=== PATIENT | female | born 1970 | race Caucasian/White ===

== ENCOUNTER 2017-08-24 16:29 | Emergency (ER) | payer OTHER, BC ==
[~2017-08-24] VITALS: Ht 185.4 cm; Wt 158.8 kg
[~2017-08-24 16:29] MED LIST: ASPI325 PO; ASPI81CH PO; ATOR80 PO; BASAGLAR K100 UNIT/1 SC; CEPH500 PO; CLOP75 PO; HYDACE5 PO; IBUP600 PO; IBUP800 PO; Isosorbide Mono30 MG PO; LEVSOD75 PO; LISHYD1012 PO; METF500 PO; METF500C PO; METO25ER PO; RANI150 PO; RXHYDACE PO; Synthroid175 MCG PO; Vibramycin100 MG PO
[2017-08-24] MEDS ORDERED: GLIP5ER PO (16:38)
[2017-08-24] MEDS ORDERED: HYDR1TAB94 PO (18:00)
== END 2017-08-24 18:06 | disposition home or self-care (01) ==
LOC: ER 16:29
DX: S09.90XA Unspecified injury of head, initial encounter (principal); S16.1XXA Strain of muscle, fascia and tendon at neck level, initial encounter; M25.512 Pain in left shoulder; D68.32 Hemorrhagic disorder due to extrinsic circulating anticoagulants; T50.905A Adverse effect of unspecified drugs, medicaments and biological substances, initial encounter; Z88.0 Allergy status to penicillin; Z79.899 Other long term (current) drug therapy; Z79.4 Long term (current) use of insulin; Z79.82 Long term (current) use of aspirin; E11.9 Type 2 diabetes mellitus without complications; Z87.891 Personal history of nicotine dependence; V63.9XXA Unspecified occupant of heavy transport vehicle injured in collision with car, pick-up truck or van in traffic accident, initial encounter
CPT/HCPCS: 70450; 99284

== ENCOUNTER 2017-09-04 17:06 | Observation (INO) | payer BC ==
[~2017-09-04] VITALS: Ht 185.4 cm; Wt 160.8 kg
[~2017-09-04 17:06] MED LIST changes: +GLIP5ER PO; +HYDR1TAB94 PO; -LISHYD1012 PO; +ZESTORETIC 20-1 EACH PO
[2017-09-04] MEDS ORDERED: INSULANPEN SC (17:59)
[2017-09-04] MEDS ORDERED: [UNRECOGNIZED DRUG - OTHER] (18:00)
[2017-09-04 18:15] LABS: BASOPHILS ABSOLUTE AUTO 0.05 K/mm3 (0.00-0.23); BASOPHILS PERCENT AUTO 1 % (0-2); EOSINOPHILS ABSOLUTE AUTO 0.09 K/mm3 (0.00-0.68); EOSINOPHILS PERCENT AUTO 1 % (0-6); Hematocrit 39.3 % (33.0-51.0); Hemoglobin 12.8 g/dL (11.5-16.0); IMMATURE GRAN ABSOLUTE AUTO 0.02 K/mm3 (0.00-0.10); IMMATURE GRAN PERCENT AUTO 0 % (0-1); LYMPHOCYTES ABSOLUTE AUTO 2.69 K/mm3 (0.84-5.20); LYMPHOCYTES PERCENT AUTO 29 % (21-46); MONOCYTES ABSOLUTE AUTO 0.71 K/mm3 (0.16-1.47); MONOCYTES PERCENT AUTO 8 % (4-13); Mean Corpuscular HGB 28.3 pg (26.0-34.0); Mean Corpuscular HGB Conc 32.6 g/dL (31.5-36.5); Mean Corpuscular Volume 87 fL (80-100); Mean Platelet Volume 10.3 fL (9.1-12.4); NEUTROPHILS ABSOLUTE AUTO 5.88 K/mm3 (1.96-9.15); NEUTROPHILS PERCENT AUTO 62 % (41-73); Platelet Count 296 K/mm3 (150-400); RDW Standard Deviation 44.5 fL (35.1-46.3); Red Blood Cell Count 4.52 M/mm3 (3.80-5.20); White Blood Cell Count 9.44 K/mm3 (4.00-11.30)
[2017-09-04 18:28] LABS: International Normalized Ratio 0.95; Prothrombin Time Results 9.9 Sec (9.7-11.5)
[2017-09-04 18:29] LABS: Alanine Aminotransfer (ALT/SGP 25 U/L (12-78); Albumin, Blood 3.4 g/dL (3.4-5.0); Albumin/Globulin Ratio 0.8 (0.8-1.8); Alk Phos 94 U/L (50-136); Anion Gap 11 mmol/L (6-16); Aspartate Aminotrans (AST/SGOT 16 U/L (12-37); Bilirubin, Total 0.3 mg/dL (0.1-1.0); Blood Urea Nitrogen 19 mg/dL (8-24); CO2, Blood 23 mmol/L (21-32); Calcium, Blood 8.9 mg/dL (8.5-10.1); Chloride, Blood 102 mmol/L (98-108); Globulin, Blood 4.3 g/dL (2.2-4.0); Glomerular Filtration Rate >60 (60-); Glucose, Blood 259 mg/dL (70-99); Potassium, Blood 3.9 mmol/L (3.5-5.5); Sodium, Blood 136 mmol/L (136-145); Total Protein, Blood 7.7 g/dL (6.4-8.2); Troponin I <0.015 ng/mL (0.000-0.040)
[2017-09-05] MEDS ORDERED: STELARA45 MG/0.1 SC (11:29)
[2017-09-05] MEDS ORDERED: PANT40 PO (11:29)
== END 2017-09-05 13:13 | disposition home or self-care (01) ==
LOC: ER 17:06 → MEDS 17:07 → ER 21:13 → MEDS 21:22 → ENPENDDIS 09-05 09:30 → MEDS 09-05 13:13
PROVIDERS: Emergency Medicine
DX: R07.89 Other chest pain (principal); R12 Heartburn; I25.10 Atherosclerotic heart disease of native coronary artery without angina pectoris; I10 Essential (primary) hypertension; E11.9 Type 2 diabetes mellitus without complications; K21.9 Gastro-esophageal reflux disease without esophagitis; E66.01 Morbid (severe) obesity due to excess calories; I25.2 Old myocardial infarction; E03.9 Hypothyroidism, unspecified; Z88.0 Allergy status to penicillin; Z79.82 Long term (current) use of aspirin; Z79.899 Other long term (current) drug therapy; Z79.02 Long term (current) use of antithrombotics/antiplatelets; Z82.49 Family history of ischemic heart disease and other diseases of the circulatory system; Z95.5 Presence of coronary angioplasty implant and graft; Z87.891 Personal history of nicotine dependence; Z68.42 Body mass index [BMI] 45.0-49.9, adult
CPT/HCPCS: 36415; 71046; 80053; 82947; 83880; 84484; 85025; 85610; 85730; 93005; 93010; 99285; G0378; J1815

== ENCOUNTER 2019-03-06 16:29 | Emergency (ER) | payer BC ==
[~2019-03-06] VITALS: Ht 185.4 cm; Wt 158.8 kg
[~2019-03-06 16:29] MED LIST changes: +BASAGLAR K100 UNIT/1; +INSULANPEN SC; +PANT40 PO; +STELARA45 MG/0.1 SC; +STELARA90 MG/1 ML; +[UNRECOGNIZED DRUG - OTHER]
[2019-03-06 16:59] LABS: BASOPHILS ABSOLUTE AUTO 0.04 K/mm3 (0.00-0.23); BASOPHILS PERCENT AUTO 1 % (0-2); EOSINOPHILS ABSOLUTE AUTO 0.09 K/mm3 (0.00-0.68); EOSINOPHILS PERCENT AUTO 1 % (0-6); Hematocrit 39.4 % (33.0-51.0); Hemoglobin 12.9 g/dL (11.5-16.0); IMMATURE GRAN ABSOLUTE AUTO 0.03 K/mm3 (0.00-0.10); IMMATURE GRAN PERCENT AUTO 0 % (0-1); LYMPHOCYTES ABSOLUTE AUTO 2.39 K/mm3 (0.84-5.20); LYMPHOCYTES PERCENT AUTO 32 % (21-46); MONOCYTES ABSOLUTE AUTO 0.59 K/mm3 (0.16-1.47); MONOCYTES PERCENT AUTO 8 % (4-13); Mean Corpuscular HGB 28.8 pg (26.0-34.0); Mean Corpuscular HGB Conc 32.7 g/dL (31.5-36.5); Mean Corpuscular Volume 88 fL (80-100); Mean Platelet Volume 10.2 fL (9.1-12.4); NEUTROPHILS ABSOLUTE AUTO 4.38 K/mm3 (1.96-9.15); NEUTROPHILS PERCENT AUTO 58 % (41-73); Platelet Count 281 K/mm3 (150-400); RDW Coefficient Variation 13.6 % (11.7-14.2); RDW Standard Deviation 43.6 fL (35.1-46.3); Red Blood Cell Count 4.48 M/mm3 (3.80-5.20); White Blood Cell Count 7.52 K/mm3 (4.00-11.30)
[2019-03-06] MEDS ORDERED: LISINOPRIL/HCTZ (17:10)
[2019-03-06] MEDS ORDERED: METF500C PO (17:11)
[2019-03-06] MEDS ORDERED: FLUC200 PO (17:13)
[2019-03-06] MEDS ORDERED: GLIP2.5ER PO (17:13)
[2019-03-06] MEDS ORDERED: BASAGLAR K100 UNIT/2 SC (17:13)
[2019-03-06 17:21] LABS: Alanine Aminotransfer (ALT/SGP 28 U/L (12-78); Albumin, Blood 3.3 g/dL (3.4-5.0); Albumin/Globulin Ratio 0.8 (0.8-1.8); Alk Phos 90 U/L (50-136); Anion Gap 6 mmol/L (6-16); Aspartate Aminotrans (AST/SGOT 14 U/L (12-37); Bilirubin, Total 0.5 mg/dL (0.1-1.0); Blood Urea Nitrogen 14 mg/dL (8-24); Bun/Creatinine Ratio 16.4 (12.0-20.0); CO2, Blood 26 mmol/L (21-32); Chloride, Blood 102 mmol/L (98-108); Creatinine, Blood 0.86 mg/dL (0.40-1.00); Glomerular Filtration Rate >60 (60-); Glucose, Blood 289 mg/dL (70-99); Potassium, Blood 3.9 mmol/L (3.5-5.5); Sodium, Blood 134 mmol/L (136-145); Total Protein, Blood 7.3 g/dL (6.4-8.2); Troponin I <0.015 ng/mL (0.000-0.040)
== END 2019-03-06 18:17 | disposition home or self-care (01) ==
LOC: ER 16:29
PROVIDERS: Physician Assistant
DX: R07.89 Other chest pain (principal); I25.10 Atherosclerotic heart disease of native coronary artery without angina pectoris; I25.2 Old myocardial infarction; I10 Essential (primary) hypertension; E11.9 Type 2 diabetes mellitus without complications; E03.9 Hypothyroidism, unspecified; K21.9 Gastro-esophageal reflux disease without esophagitis; Z95.5 Presence of coronary angioplasty implant and graft; Z88.0 Allergy status to penicillin; Z79.899 Other long term (current) drug therapy; Z79.82 Long term (current) use of aspirin; Z79.4 Long term (current) use of insulin; Z87.891 Personal history of nicotine dependence
CPT/HCPCS: 36415; 71046; 80053; 84484; 85025; 93005; 93010; 99285-25

== ENCOUNTER 2019-04-19 16:17 | Emergency (ER) | payer BC ==
[~2019-04-19] VITALS: Ht 185.4 cm; Wt 158.8 kg
[~2019-04-19 16:17] MED LIST changes: +BASAGLAR K100 UNIT/2 SC; +FLUC200 PO; +GLIP2.5ER PO; +LISINOPRIL/HCTZ
[2019-04-19] MEDS ORDERED: Prinivil10 MG PO (18:52)
[2019-04-19] MEDS ORDERED: Pravachol40 MG PO (18:52)
== END 2019-04-19 19:06 | disposition home or self-care (01) ==
LOC: ER 16:17
DX: I82.812 Embolism and thrombosis of superficial veins of left lower extremity (principal); E11.9 Type 2 diabetes mellitus without complications; I25.2 Old myocardial infarction; Z88.0 Allergy status to penicillin; Z79.899 Other long term (current) drug therapy; Z79.82 Long term (current) use of aspirin; Z79.4 Long term (current) use of insulin; Z87.891 Personal history of nicotine dependence
CPT/HCPCS: 93971; 99283-25

== ENCOUNTER 2020-09-05 10:34 | Day surgery (SDC) | payer BC ==
[~2020-09-05] VITALS: Ht 185.4 cm; Wt 150.8 kg
[~2020-09-05 10:34] MED LIST changes: +BASAGLAR K100 UNIT/8; +GABA300; +HYDCHL25 PO; +JARDIANCE10 MG PO; +Pravachol40 MG PO; +Prinivil10 MG PO
[2020-09-05] MEDS ORDERED: TRULICITY1.5 MG/0.1 (11:14)
[2020-09-05] MEDS ORDERED: MELO7.5 (11:15)
== END 2020-09-05 12:36 | disposition home or self-care (01) ==
LOC: ORSCSDS 10:34
PROVIDERS: Internal Medicine Gastroenterology
PROC: 0DJD8ZZ Inspection of Lower Intestinal Tract, Via Natural or Artificial Opening Endoscopic (ICD-10-PCS; principal; 2020-09-05 12:00)
DX: Z12.11 Encounter for screening for malignant neoplasm of colon (principal); K57.30 Diverticulosis of large intestine without perforation or abscess without bleeding; K64.8 Other hemorrhoids; E11.9 Type 2 diabetes mellitus without complications; I10 Essential (primary) hypertension; E78.5 Hyperlipidemia, unspecified; E03.9 Hypothyroidism, unspecified; Z87.891 Personal history of nicotine dependence; I25.2 Old myocardial infarction; E66.01 Morbid (severe) obesity due to excess calories; Z68.42 Body mass index [BMI] 45.0-49.9, adult; Z79.82 Long term (current) use of aspirin; Z79.4 Long term (current) use of insulin; Z79.899 Other long term (current) drug therapy
CPT/HCPCS: 82947; J2704; J7120

== ENCOUNTER → 2020-10-29 | Outpatient (CLI) | payer BC ==
[~2020-10-29] MED LIST changes: +MELO7.5; +TRULICITY1.5 MG/0.1
[2020-11-01 11:12] LABS: HPV 16 Negative (Negative); HPV 18 Negative (Negative); HPV OTHER HR TYPES Negative (Negative)
== END ==
LOC: LAB 15:50 → LAB SHORT 15:50
PROVIDERS: Registered Nurse Community Health
DX: Z12.4 Encounter for screening for malignant neoplasm of cervix (principal)
CPT/HCPCS: 87624; G0123

== ENCOUNTER 2023-01-16 07:27 | Emergency (ER) | payer OTHER, BC ==
[~2023-01-16] VITALS: Ht 185.4 cm; Wt 151.5 kg
[2023-01-16 07:38] VITALS: BP 149/87
[2023-01-16] MEDS ORDERED: CYCL10 PO (07:58)
== END 2023-01-16 08:08 | disposition home or self-care (01) ==
LOC: ER 07:27
DX: S13.4XXA Sprain of ligaments of cervical spine, initial encounter (principal); V49.40XA Driver injured in collision with unspecified motor vehicles in traffic accident, initial encounter; Z88.0 Allergy status to penicillin; Z79.82 Long term (current) use of aspirin; Z79.4 Long term (current) use of insulin; Z79.890 Hormone replacement therapy; Z79.899 Other long term (current) drug therapy; E11.9 Type 2 diabetes mellitus without complications; I25.2 Old myocardial infarction; Z87.891 Personal history of nicotine dependence
CPT/HCPCS: 72040; 99283-25; A9270

== ENCOUNTER → 2023-05-15 | Outpatient (CLI) | payer BC, OTHER ==
[~2023-05-15] MED LIST changes: +CYCL10 PO
[2023-05-22 00:30] LABS: HPV GENOTYPE 16 Not Detected; HPV GENOTYPE 18 Not Detected; HPV HIGH RISK Not Detected; HPV SOURCE Cervical
== END ==
LOC: LAB SHORT 11:21 → LAB 11:21
PROVIDERS: General Practice
DX: Z12.4 Encounter for screening for malignant neoplasm of cervix (principal)
CPT/HCPCS: 87624; G0123

== ENCOUNTER 2023-10-04 13:02 | Emergency (ER) | payer BC, OTHER ==
[~2023-10-04] VITALS: Ht 185.4 cm; Wt 148.3 kg
[2023-10-04 13:36] LABS: BASOPHILS ABSOLUTE AUTO 0.06 K/mm3 (0.00-0.23); BASOPHILS PERCENT AUTO 1 % (0-2); EOSINOPHILS PERCENT AUTO 1 % (0-6); Hemoglobin 13.5 g/dL (11.5-16.0); IMMATURE GRAN ABSOLUTE AUTO 0.01 K/mm3 (0.00-0.10); IMMATURE GRAN PERCENT AUTO 0 % (0-1); LYMPHOCYTES ABSOLUTE AUTO 2.19 K/mm3 (0.84-5.20); LYMPHOCYTES PERCENT AUTO 28 % (21-46); MONOCYTES ABSOLUTE AUTO 0.53 K/mm3 (0.16-1.47); MONOCYTES PERCENT AUTO 7 % (4-13); Mean Corpuscular HGB 27.7 pg (26.0-34.0); Mean Corpuscular HGB Conc 32.9 g/dL (31.5-36.5); Mean Corpuscular Volume 84 fL (80-100); Mean Platelet Volume 9.3 fL (9.1-12.4); NEUTROPHILS ABSOLUTE AUTO 5.03 K/mm3 (1.96-9.15); NEUTROPHILS PERCENT AUTO 63 % (41-73); Platelet Count 329 K/mm3 (150-400); RDW Coefficient Variation 15.2 % (11.7-14.2); RDW Standard Deviation 46.4 fL (35.1-46.3); Red Blood Cell Count 4.87 M/mm3 (3.80-5.20); White Blood Cell Count 7.92 K/mm3 (4.00-11.30)
[2023-10-04 14:02] LABS: Albumin, Blood 3.4 g/dL (3.4-5.0); Bilirubin, Total 0.4 mg/dL (0.1-1.0); Bun/Creatinine Ratio 26.4 (12.0-20.0); Creatinine, Blood 1.06 mg/dL (0.40-1.00); Globulin, Blood 3.5 g/dL (2.2-4.0); Potassium, Blood 4.3 mmol/L (3.5-5.5); Total Protein, Blood 6.9 g/dL (6.4-8.2)
[2023-10-04] MEDS ORDERED: Aspirin 325 MG Tab PO ONE (17:25)
[2023-10-04] MEDS ORDERED: Nitroglycerin 1 INCH/GM PKT TOP ONE (17:25)
[2023-10-04] MEDS ORDERED: EUTHYROX175 MC1 PO (17:29)
[2023-10-04] MEDS ORDERED: DECARA1250 MC1 PO (17:30)
[2023-10-04] MEDS ORDERED: SEMGLEE (Y100 UNIT/2 (17:30)
[2023-10-04 19:35] VITALS: BP 103/71
== END 2023-10-04 19:39 | disposition home or self-care (01) ==
LOC: ER 13:02
PROVIDERS: Student in an Organized Health Care Education/Training Program
DX: R07.89 Other chest pain (principal); E11.9 Type 2 diabetes mellitus without complications; E03.9 Hypothyroidism, unspecified; Z86.79 Personal history of other diseases of the circulatory system; Z87.891 Personal history of nicotine dependence; Z79.82 Long term (current) use of aspirin; Z79.84 Long term (current) use of oral hypoglycemic drugs; Z79.4 Long term (current) use of insulin; Z79.899 Other long term (current) drug therapy; Z88.0 Allergy status to penicillin
CPT/HCPCS: 71046; 80053; 84484; 85025; 93005; 93010; 99285-25; A9270

== ENCOUNTER → 2024-05-07 | Outpatient (CLI) | payer OTHER ==
[~2024-05-07] MED LIST changes: +DECARA1250 MC1 PO; +EUTHYROX175 MC1 PO; +SEMGLEE (Y100 UNIT/2
[2024-05-07 16:51] LABS: BASOPHILS ABSOLUTE AUTO 0.06 K/mm3 (0.00-0.23); BASOPHILS PERCENT AUTO 1 % (0-2); EOSINOPHILS ABSOLUTE AUTO 0.13 K/mm3 (0.00-0.68); EOSINOPHILS PERCENT AUTO 2 % (0-6); Hematocrit 38.4 % (33.0-51.0); Hemoglobin 12.9 g/dL (11.5-16.0); IMMATURE GRAN ABSOLUTE AUTO 0.04 K/mm3 (0.00-0.10); IMMATURE GRAN PERCENT AUTO 1 % (0-1); LYMPHOCYTES ABSOLUTE AUTO 2.54 K/mm3 (0.84-5.20); LYMPHOCYTES PERCENT AUTO 30 % (21-46); MONOCYTES ABSOLUTE AUTO 0.81 K/mm3 (0.16-1.47); MONOCYTES PERCENT AUTO 10 % (4-13); Mean Corpuscular HGB Conc 33.6 g/dL (31.5-36.5); Mean Corpuscular Volume 83 fL (80-100); Mean Platelet Volume 9.6 fL (9.1-12.4); NEUTROPHILS ABSOLUTE AUTO 4.84 K/mm3 (1.96-9.15); NEUTROPHILS PERCENT AUTO 58 % (41-73); Platelet Count 392 K/mm3 (150-400); RDW Coefficient Variation 15.1 % (11.7-14.2); RDW Standard Deviation 45.1 fL (35.1-46.3); Red Blood Cell Count 4.61 M/mm3 (3.80-5.20); White Blood Cell Count 8.42 K/mm3 (4.00-11.30)
[2024-05-07 16:58] LABS: Albumin, Blood 3.6 g/dL (3.4-5.0); Bilirubin, Total 0.4 mg/dL (0.1-1.0); Bun/Creatinine Ratio 18.3 (12.0-20.0); Creatinine, Blood 1.64 mg/dL (0.40-1.00); Globulin, Blood 3.6 g/dL (2.2-4.0); Potassium, Blood 5.4 mmol/L (3.5-5.5); Total Protein, Blood 7.2 g/dL (6.4-8.2)
== END | disposition home or self-care (01) ==
LOC: LAB SHORT 16:43 → LAB 16:43
PROVIDERS: Physician Assistant Medical
DX: R42 Dizziness and giddiness (principal)
CPT/HCPCS: 80053; 85025

== ENCOUNTER → 2024-05-08 | Outpatient (CLI) | payer OTHER ==
[2024-05-08 12:52] LABS: Bun/Creatinine Ratio 18.9 (12.0-20.0); Calcium, Blood 9.3 mg/dL (8.5-10.1); Creatinine, Blood 1.32 mg/dL (0.40-1.00); Potassium, Blood 4.1 mmol/L (3.5-5.5)
== END | disposition home or self-care (01) ==
LOC: LAB 12:44 → LAB SHORT 12:44
PROVIDERS: Physician Assistant Medical
DX: N17.9 Acute kidney failure, unspecified (principal)
CPT/HCPCS: 80048

== ENCOUNTER → 2024-05-09 | Outpatient (CLI) | payer BC, OTHER ==
[2024-05-09 12:06] LABS: Bun/Creatinine Ratio 17.5 (12.0-20.0); Calcium, Blood 9.2 mg/dL (8.5-10.1); Creatinine, Blood 1.26 mg/dL (0.40-1.00); Potassium, Blood 4.1 mmol/L (3.5-5.5)
== END | disposition home or self-care (01) ==
LOC: LAB 11:55 → LAB SHORT 11:55
PROVIDERS: Physician Assistant Medical
DX: N17.9 Acute kidney failure, unspecified (principal)
CPT/HCPCS: 80048

== ENCOUNTER 2024-07-10 12:22 | Observation (INO) | payer BC, OTHER ==
[~2024-07-10] VITALS: Ht 185.4 cm; Wt 116.9 kg
[~2024-07-10 12:22] MED LIST changes: -ELIQUIS5 M2 PO
[2024-07-10] MEDS ORDERED: Aspirin 325 MG Tab PO ONE ×2 (12:50→13:55)
[2024-07-10] MEDS ORDERED: Aspirin 81 MG Chew ONE (14:01)
[2024-07-10] MEDS ORDERED: PANT40 PO (14:13)
[2024-07-10 15:57] LABS: Anti-Xa UFH, PHA Monitoring <0.10 IU/mL; International Normalized Ratio 1.02; Prothrombin Time Results 10.9 Sec (9.7-11.5)
[2024-07-10] MEDS ORDERED: Dose Adjust by Pharmacy XX STA ×2 (16:00→23:49)
[2024-07-10] MEDS ORDERED: Heparin Sodium,Porcine/0.5 NS 500 ML IV SCH (16:05)
[2024-07-10] MEDS ORDERED: Heparin Sodium 5000 Units/ML 1ML MDV IV ONE (16:05)
[2024-07-10 17:16] VITALS: BP 120/73
--- NOTE | 2024-07-10 19:20 | NUR ---
ADMISSION/EOS: PATIENT IS ALERT AND ORIENTED X 4, ABLE TO MAKE NEEDS KNOWN, DENIES CHEST PAIN OR PAIN OF ANY KIND, AND MOM UPDATED OF SITUATION. RECENT BARIACTRIC SURGERY TO [facility] SHE REQUESTED PUREE DIET. PATIETN IS VERY STRICT ON INTAKE AND MAKES VERY GREAT FOOD CHOICES, DENIED ANY DIZZINESS WITH AMBULATION. VERY INDEPENDENT BUT STANDBY ASSIST DUE TO HEPARIN Gtt, TROPONIN TRENDED DOWN TO 201, 1 MORE PENDING. HIGH OF 232. CT PE NEGATIVE. DENIES YSURIA.. GREAT HISTORIAN. SPO2 >98% ON RA. AFIB WITH SLOW VENTRICULAR RATE WHICH IS NEW FOR HER. PLAN FOR ANGIO IN THE AM NPO AT 0000. NO ACUTE CONCERNS FROM THIS RN OR PATIENT.
[2024-07-10 20:21] VITALS: BP 110/70
[2024-07-10] MEDS ORDERED: Gabapentin 300 MG Cap PO SCH (21:00)
[2024-07-11] VITALS (10 sets, daily range): BP systolic 106–135; BP diastolic 73–96
[2024-07-11] MEDS ORDERED: Pantoprazole Sodium 40 MG Tab PO SCH (06:00)
[2024-07-11] MEDS ORDERED: Levothyroxine Sodium 0.175 MG TAB PO SCH (06:00)
[2024-07-11 06:19] LABS: Hematocrit 41.8 % (33.0-51.0); Hemoglobin 13.8 g/dL (11.5-16.0); Mean Platelet Volume 11.3 fL (9.1-12.4); Platelet Count 255 K/mm3 (150-400)
--- NOTE | 2024-07-11 06:28 | NUR ---
PT DID NOT HAVE ANY CHEST PAIN DURING SHIFT. PT DOES ENDORSE PALPITATIONS WHEN ACTIVE. NO DYSPNEA NOTED. PT AOX4, USES CALL LIGHT APPROPRIATELY. PT TOLERATING HEPARIN INFUSION WELL, NO S/S BLEEDING/BRUISING. PT WAS IN ATRIAL FIB W/SVR AT BEGINNING OF SHIFT AND CONVERTED TO SINUS RHYTHM/SINUS JEAN BEFORE MIDNIGHT. PT DOES CONTINUE TO BECOME TACHYCARDIC WITH ACTIVITY 110-120. PT STATES THAT SHE "IS FEELING BETTER", AT THE END OF THIS SHIFT.
[2024-07-11 06:45] LABS: Bun/Creatinine Ratio 23.4 (12.0-20.0); Creatinine, Blood 0.94 mg/dL (0.40-1.00); Potassium, Blood 3.5 mmol/L (3.5-5.5)
[2024-07-11] MEDS ORDERED: Dose Adjust by Pharmacy XX STA ×2 (06:48→14:20)
[2024-07-11] MEDS ORDERED: Metoprolol Succinate 50 MG TABCR PO SCH ×2 (09:00→21:00)
[2024-07-11] MEDS ORDERED: Atorvastatin 40 MG Tab PO SCH ×2 (09:00→21:00)
[2024-07-11] MEDS ORDERED: Aspirin 81 MG Chew PO SCH (09:00)
[2024-07-11] MEDS ORDERED: Empagliflozin 10 MG TAB PO SCH (09:00)
[2024-07-11] MEDS ORDERED: Gabapentin 300 MG Cap PO SCH (09:00)
--- NOTE | 2024-07-11 09:45 | NUR ---
AM NOTE: PATIENT ALERT AND ORIENTED X4. UP WITH SBA TO BATHROOM. DENIES PAIN/NUMBNESS/TINGLING. PERRLA. USING CALL LIGHT FOR NEEDS. AT BEDSIDE THIS AM. TELE SHOWING SB/SR WTH HR 50-60'S. SBP 120'S. DENIES CHEST PAIN/PRESSURE/PALPITATIONS. PLAN FOR ANGIOGRAM THIS AM. DR. REIS AT BEDSIDE THIS AM, THIS RN PRESENT. HOLDING PARAMETERS FOR PO METOPROLOL - HOLD FOR HR LESS THAN 50. ORDER UPDATED. SCD'S IN PLACE. HEPARIN INFUSING PER EMAR. NPO AT THIS TIME. ON ROOM AIR. LUNG SOUNDS CLEAR. DENIES SOB. EVEN AND UNLABORED RESPIRATIONS. BOWEL TONES PRESENT. RECENT GASTRIC BYPASS. DENIES ABDOMINAL PAIN/NAUSEA. UP WITH SBA TO BATHROOM. NPO AT THIS TIME PENDING ANGIO. ACHS/Q6 BLOOD SUGARS. SKIN C/D/I WITH SCABBING TO RIGHT MILLAN/KNEE. CALL LIGHT IN REACH. DENIES NEEDS AT THIS TIME.
[2024-07-11] MEDS ORDERED: FentaNYL Citrate 50 MCG/ML 2 ML Injection ONE (13:03)
[2024-07-11] MEDS ORDERED: NS 1,000 ML IV ONE ×2 (13:04→13:06)
[2024-07-11] MEDS ORDERED: Midazolam HCl 1MG / ML 2ML Vial ONE (13:04)
[2024-07-11] MEDS ORDERED: NS 250 ML IV ONE (13:06)
[2024-07-11] MEDS ORDERED: Heparin Sodium 1000 Units/ML 10ML MDV ONE (13:06)
[2024-07-11] MEDS ORDERED: Verapamil HCL 2.5 MG/ML 2ML Injection ONE (13:06)
[2024-07-11] MEDS ORDERED: Nitroglycerin 2 MG/20 ML BTL ONE (13:06)
--- NOTE | 2024-07-11 14:44 | NUR ---
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 POST PROCEDURE VITALS IN PROGRESS. RIGHT RADIAL SITE WITH TR BAND AND ARM BOARD IN PLACE. SOFT/NONTENDER. NO SIGNS OF BLEEDING AT THIS TIME. AND SON AT BEDSIDE. THIS RN REVIEWED RADIAL PRECAUTION EDUCATION. CALL LIGHT IN REACH. DR. PIERSON UPDATED THAT PATIENT IS BACK TO UNIT.
[2024-07-11] MEDS ORDERED: ELIQUIS5 M2 PO (14:51)
--- NOTE | 2024-07-11 15:48 | NUR ---
PLAN FOR DISCHARGE ONCE RADIAL SITE IS RECOVERED. MEDICATIONS FAXED TO [facility]. TO [facility]IST MEDICATIONS AT THIS TIME. RADIAL SITE REMAINS C/D/I. CALL LIGHT IN REACH.
[2024-07-11] MEDS ORDERED: Apixaban 5 MG Tab PO SCH (16:05)
--- NOTE | 2024-07-11 18:07 | NUR ---
DISCHARGE: NO ACUTE CHANGES. RIGHT RADIAL SITE RECOVERED AND TEGADERM IN PLACE WELL ARM BOARD. MEDS FAXED TO [facility]. PATIENT EDUCATED ON RADIAL PRECAUTIONS, NEW MEDICATIONS, BLOOD THINNER AND FALL RISK, SIGNS AND SYMPTOMS OF WHEN TO RETURN. AT BEDSIDE FOR EDUCATION. PATIENT TO FOLLO UP WITH PCP AND CARDIOLOGY. PATIENT LEFT UNIT WITH ALL PERSONAL BELONGINGS AND DISCHARGE PACKET.
[2024-07-16] MEDS ORDERED: Misc. Capsule PO SCH (09:00)
== END 2024-07-11 18:06 | disposition home or self-care (01) ==
LOC: ER 12:22 → PCU 15:18
PROVIDERS: Student in an Organized Health Care Education/Training Program; ADMIT Internal Medicine
DX: I21.4 Non-ST elevation (NSTEMI) myocardial infarction (principal); I25.10 Atherosclerotic heart disease of native coronary artery without angina pectoris; I25.2 Old myocardial infarction; I12.9 Hypertensive chronic kidney disease with stage 1 through stage 4 chronic kidney disease, or unspecified chronic kidney disease; E11.22 Type 2 diabetes mellitus with diabetic chronic kidney disease; N18.30 Chronic kidney disease, stage 3 unspecified; I48.91 Unspecified atrial fibrillation; E03.9 Hypothyroidism, unspecified; E78.5 Hyperlipidemia, unspecified; L40.9 Psoriasis, unspecified; Z87.891 Personal history of nicotine dependence; Z79.84 Long term (current) use of oral hypoglycemic drugs; Z79.82 Long term (current) use of aspirin; Z79.890 Hormone replacement therapy; Z79.4 Long term (current) use of insulin; Z79.899 Other long term (current) drug therapy; Z88.0 Allergy status to penicillin; Z95.5 Presence of coronary angioplasty implant and graft; Z98.84 Bariatric surgery status; Z90.49 Acquired absence of other specified parts of digestive tract
CPT/HCPCS: 36415; 71260; 76937; 80048; 82947; 84443; 84484; 85014; 85018; 85049; 85520; 85610; 85730; 93005; 93010; 93306; 93458; 96365; 96376; 99152; 99285-25; A9270; C1769; C1887; C1894; G0378; J1644; J2250; J3010; J7030; J7050; Q9967

== ENCOUNTER → 2024-07-10 | Outpatient (CLI) | payer BC, OTHER ==
[~2024-07-10] MED LIST changes: +ELIQUIS5 M2 PO
[2024-07-10 09:54] LABS: BASOPHILS ABSOLUTE AUTO 0.09 K/mm3 (0.00-0.23); BASOPHILS PERCENT AUTO 1 % (0-2); EOSINOPHILS ABSOLUTE AUTO 0.42 K/mm3 (0.00-0.68); EOSINOPHILS PERCENT AUTO 5 % (0-6); Hemoglobin 14.9 g/dL (11.5-16.0); IMMATURE GRAN ABSOLUTE AUTO 0.03 K/mm3 (0.00-0.10); IMMATURE GRAN PERCENT AUTO 0 % (0-1); LYMPHOCYTES ABSOLUTE AUTO 1.79 K/mm3 (0.84-5.20); LYMPHOCYTES PERCENT AUTO 19 % (21-46); MONOCYTES ABSOLUTE AUTO 0.64 K/mm3 (0.16-1.47); MONOCYTES PERCENT AUTO 7 % (4-13); Mean Corpuscular HGB 27.3 pg (26.0-34.0); Mean Corpuscular HGB Conc 32.4 g/dL (31.5-36.5); Mean Corpuscular Volume 84 fL (80-100); Mean Platelet Volume 10.7 fL (9.1-12.4); NEUTROPHILS ABSOLUTE AUTO 6.25 K/mm3 (1.96-9.15); NEUTROPHILS PERCENT AUTO 68 % (41-73); Platelet Count 297 K/mm3 (150-400); RDW Coefficient Variation 15.5 % (11.7-14.2); RDW Standard Deviation 46.4 fL (35.1-46.3); Red Blood Cell Count 5.45 M/mm3 (3.80-5.20); White Blood Cell Count 9.22 K/mm3 (4.00-11.30)
[2024-07-10 10:05] LABS: Albumin, Blood 3.8 g/dL (3.4-5.0); Bilirubin, Total 0.9 mg/dL (0.1-1.0); Bun/Creatinine Ratio 20.6 (12.0-20.0); Calcium, Blood 9.6 mg/dL (8.5-10.1); Creatinine, Blood 1.26 mg/dL (0.40-1.00); Globulin, Blood 3.8 g/dL (2.2-4.0); Magnesium, Blood 1.8 mg/dL (1.6-2.4); Potassium, Blood 3.5 mmol/L (3.5-5.5); Total Protein, Blood 7.6 g/dL (6.4-8.2)
== END ==
LOC: LAB SHORT 09:50 → LAB 09:50
PROVIDERS: Physician Assistant
DX: R42 Dizziness and giddiness (principal)
CPT/HCPCS: 80053; 83735; 83880; 84484; 85025; 85379